=== PATIENT | male | born 1970 | race Caucasian/White ===

== ENCOUNTER 2023-07-24 08:54 | Day surgery (SDC) | payer OTHER ==
[2023-07-24] MEDS ORDERED: LIDOCAINE 1% (10MG/ML) FOR IV START INTRADERMA ONE (09:25)
[2023-07-24] MEDS ORDERED: LACTATED RINGERS 1,000 ML IV ONE (09:25)
[2023-07-24 09:26] VITALS: RESP 16; TEMP 97.2
[2023-07-24] MEDS ORDERED: LIDOCAINE 1% INJ 10MG/ML (20 ML MDV) ONE (09:40)
[2023-07-24] MEDS ORDERED: PROPOFOL 10 MG/ML 20 ML VIAL IV ONE (09:40)
[2023-07-24] MEDS ORDERED: GLYCOPYRROLATE 0.2 MG/ML 2 ML VIAL ONE (09:40)
--- NOTE | 2023-07-24 09:52 | P.GSHP ---
History of Present Illness H&P Date: 07/24/23 Chief Complaint: GERD, presurgical 53-year-old male here today for EGD. Patient is being evaluated for sleeve gastrectomy. No dysphagia. Past Medical History Past Medical History: Hypertension History of Any Multi-Drug Resistant Organisms: None Reported Past Surgical History: Tonsillectomy Past Anesthesia/Blood Transfusion Reactions: No Reported Reaction Smoking Status: Never smoker Medications and Allergies Home Medications Medication Instructions Recorded Confirmed Type Latanoprost Ophth [Xalatan 0.005%] 1 drops BOTH EYES HS 07/20/23 07/20/23 History Losartan Potassium 50 mg PO DAILY 07/20/23 07/20/23 History Allergies Allergy/AdvReac Type Severity Reaction Status Date / Time No Known Allergies Allergy Verified 07/24/23 09:18 Surgical - Exam Vital Signs Temp Pulse Resp BP Pulse Ox 97.2 F L 71 16 136/83 95 07/24/23 09:22 07/24/23 09:22 07/24/23 09:22 07/24/23 09:22 07/24/23 09:22 Physical exam: General: Well-developed, well-nourished HEENT: Normocephalic, sclerae nonicteric Abdomen: Nontender, nondistended Extremities: No edema Neuro: Alert and oriented Assessment and Plan (1) Morbid obesity with BMI of 40.0-44.9, adult Narrative/Plan: Will proceed with EGD at this time Current Visit: No Status: Acute Code(s): E66.01 - MORBID (SEVERE) OBESITY DUE TO EXCESS CALORIES; Z68.41 - BODY MASS INDEX [BMI] 40.0-44.9, ADULT SNOMED Code(s): 717422356
--- NOTE | 2023-07-24 10:00 | P.PCN ---
Date of Procedure: 07/24/23 Procedure(s) Performed: Preoperative Dx: GERD, presurgical Postoperative Dx: Erosive gastritis Procedure: EGD with Bx Anesthesia: Sedation Endoscopist: Dr. Post Specimens: Antrum Endoscopic Procedure: The patient was on the endoscopy table in the left decubitus position. The Olympus gastroscope was inserted into the oropharynx and passed under direct visualization to the region of the third portion of the duodenum. From that point the scope was slowly withdrawn inspecting all surfaces carefully. There were no neoplastic inflammatory or polypoid lesions throughout the duodenum. The pylorus was widely patent. The stomach was carefully inspected. There was gastritis present. There was some superficial erosions present with a small amount of blood in the lumen. A biopsy of the antrum took place to rule out H. pylori. Retroflexion revealed a normal hiatus. The esophagus was then carefully examined. There were no neoplastic inflammatory or polypoid lesions throughout the visualized esophagus. The patient was then taken to the recovery room in stable condition per anesthesia guidelines. Recommendations: Begin antiacid therapy. Await biopsy results. Follow bariatric center.
[2023-07-24 10:43] VITALS: BP 112/75; PULSE 77
== END 2023-07-24 10:44 | disposition home or self-care (01) ==
LOC: ORWHC2ENDO 08:54
PROVIDERS: ATTEND Surgery
DX: K29.50 Unspecified chronic gastritis without bleeding (principal); K21.9 Gastro-esophageal reflux disease without esophagitis; I10 Essential (primary) hypertension; Z98.890 Other specified postprocedural states; Z79.899 Other long term (current) drug therapy
CPT/HCPCS: 88305; 43239; J2001; J2704

== ENCOUNTER → 2023-08-14 | Outpatient (CLI) | payer OTHER ==
[2023-08-14 15:41] VITALS: BP 143/95; PULSE 86; RESP 16; TEMP 97.3; BMI 44.6
--- NOTE | 2023-08-14 15:55 | P.BASOAP ---
Subjective Progress Note Date: 08/14/23 Principal diagnosis: Morbid obesity 53-year-old male returns after recent EGD. Patient had erosive gastritis. He was started on his antiacid therapy. Doing well at this time. Remains interested in sleeve gastrectomy. Objective - Vital Signs Vital signs: Vital Signs Temp 97.3 F L 08/14/23 15:31 Pulse 86 08/14/23 15:31 Resp 16 08/14/23 15:31 BP 143/95 08/14/23 15:31 Pulse Ox FiO2 Intake & Output 08/13/23 08/14/23 08/14/23 18:59 06:59 18:59 Weight 149.232 kg - Exam Abdomen: Soft, nontender, nondistended Assessment/Plan (1) Morbid obesity with BMI of 40.0-44.9, adult Narrative/Plan: 53-year-old male with history of morbid obesity and associated comorbidities. Patient remains interested in sleeve gastrectomy. Surgical consent form reviewed in detail. All questions answered. The risks of bleeding, infection, stenosis, stricture, leak, abscess, fistula formation, peritonitis, poor weight loss, reflux, vomiting, conversion to an open procedure, aborting sleeve gastrectomy, NC, PE, DVT, and were discussed. The patient understands and wishes to proceed. Plan: Date: 08/14/23 Initial Weight: 147.644 kg Initial BMI: 44.1 Current Weight: 149.232 kg Current BMI: 44.6 Type of Surgery: Total Volume in Band: Previous Volume: Volume Removed: Volume Added: Band Size:
== END ==
LOC: BARWHC3 15:11
PROVIDERS: ATTEND Surgery
DX: E66.01 Morbid (severe) obesity due to excess calories (principal)
CPT/HCPCS: 99211

== ENCOUNTER → 2023-12-26 | Outpatient (CLI) | payer OTHER ==
[2023-12-26 14:39] VITALS: BP 137/90; PULSE 69; RESP 16; TEMP 97.8
--- NOTE | 2023-12-26 16:04 | P.SLEEP ---
History of Present Illness DATE: 12/26/2023 CONSULTATION/NEW PATIENT EVALUATION HISTORY OF PRESENT ILLNESS/SLEEP-WAKE EVALUATION: 53-year-old gentleman had b een evaluated in the sleep center for possible obstructive sleep apnea hypopnea syndrome. SLEEP SCHEDULE: Usually sleep schedule from 10 PM to 7:30 AM on weekdays and from 1011 PM to 78 AM on weekend. FALLING ASLEEP: No problems with falling asleep. DURING SLEEP: Patient snores and has episodes of stop breathing during the sleep. Patient wakes up from sleep 3 times with nocturia. No history of hypnogogical hallucinations, sleep paralysis, or cataplexy. DURING THE DAY/WAKE STATE: In the morning patient wake up tired. [place] sleepiness scale is increased to 10. Usually patient does not take naps. PAST MEDICAL HISTORY: Hypertension, sinuses problems PAST SURGICAL HISTORY: Tonsillectomy. MEDICATIONS: Losartan 100 mg once a day. SOCIAL HISTORY: Negative for smoking or using alcohol. FAMILY HISTORY: Cancer, diabetes, heart problems. REVIEW OF SYSTEMS: Snoring, multiple awakenings from sleep, sleepiness during the day. No fevers. No double vision. No recent chest pain. No shortness of breath. No abdominal pain. No bleeding episodes. No blood in urine. No seizure episodes. PHYSICAL EXAMINATION: GENERAL: A pleasant patient without any distress. VITAL SIGNS: Please see below, body mass index 41.2. HEENT: PERRLA, EOMI. Evaluation of oropharynx showed tongue protrudes midline, low position of soft palate Mallampati 3. NECK: Supple. No JVD. Thyroid is not palpable. 20-3/4 inches in circumference. LUNGS: Clear to percussion and to auscultation. Good air exchange. No wheezing or rhonchi. HEART: S1, S2 regular. No murmurs, gallops or rubs. ABDOMEN: Soft and nontender. Bowel sounds are present. No organomegaly appreciated. EXTREMITIES: No clubbing or cyanosis. VIDEO GAMES MECHANIC: Awake, alert, and oriented x3. Cranial nerves 2 to 7 intact. There is no fasciculation or atrophy noted. No focal deficits observed. ASSESSMENT: 1. Snoring, episodes of stop breathing during the sleep, low position of soft palate, extremely wide neck 20 and three-quarter inches in circumference, sleepiness [place] Sleepiness Scale increased to 10. Obstructive sleep apnea hypopnea syndrome. 2. Obesity, BMI 41.2. 3. Hypertension. 4. History of sinuses problems. 5 status post tonsillectomy. PLAN: 1. Polysomnography for evaluation of patient's breathing during sleep. 2. Following plan after reading sleep study. 3. Preferable position during sleep on the side. 4. No driving if patient feels any sleepiness. Patient is aware of civil and criminal liability for unsafe driving. 5. Sleep hygiene with regular sleep time for at least 7.5-8 hours. 6. Watching and losing weight. Thank you very much for referring this patient for consultation. Sincerely, Ash Mares MD, PhD, FAASM. Diplomat of [employer], Sleep Medicine Board by [employer] [facility] [place] Past Medical History Past Medical History: Hypertension Additional Past Medical History / Comment(s): SINUS HEADACHES History of Any Multi-Drug Resistant Organisms: None Reported Past Surgical History: Tonsillectomy Past Anesthesia/Blood Transfusion Reactions: No Reported Reaction Past Psychological History: No Psychological Hx Reported Smoking Status: Never smoker Past Alcohol Use History: Rare Past Drug Use History: Marijuana Additional Drug Use History / Comment(s): smokes daily Medications and Allergies Home Medications Medication Instructions Recorded Confirmed Type Latanoprost Ophth [Xalatan 0.005%] 1 drops BOTH EYES HS 07/20/23 08/15/23 History Losartan Potassium 50 mg PO DAILY 07/20/23 12/26/23 History Omeprazole [PriLOSEC] 40 mg PO AC-BRKFST #90 cap 07/24/23 12/26/23 Rx Allergies Allergy/AdvReac Type Severity Reaction Status Date / Time No Known Allergies Allergy Verified 07/24/23 09:18 Physical Exam Vitals: Vital Signs Temp Pulse Resp BP Pulse Ox 12/26/23 14:17 97.8 F 69 16 137/90 98 Intake and Output 12/26/23 12/26/23 12/26/23 06:59 14:59 22:59 Other: Weight 133.016 kg Sleep Note - Sleep Data ESS Total: 10 - Sleep Note Sleep Note: Temperature: 97.8 F Pulse Rate: 69 Respiratory Rate: 16 Blood Pressure: 137/90 SpO2: 98 Height: 5 ft 10.7 in Weight: 133.016 kg BMI: Neck Circumference:
== END | disposition home or self-care (01) ==
LOC: 3 N SLEEP 14:00
PROVIDERS: ATTEND Internal Medicine
DX: G47.33 Obstructive sleep apnea (adult) (pediatric) (principal); E66.9 Obesity, unspecified; I10 Essential (primary) hypertension; J32.9 Chronic sinusitis, unspecified; R06.83 Snoring; Z98.890 Other specified postprocedural states
CPT/HCPCS: 99211

== ENCOUNTER 2023-12-30 17:15 | Inpatient (IN) | payer OTHER ==
[2023-12-30] MEDS: MORPHINE SULFATE 4 MG/ML SYRINGE IVP STA ×2 (17:43→20:27)
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
[2023-12-30 17:52] LABS: Basophils # (A) 0.1 k/uL (0-0.2); Basophils % (A) 0 %; Eosinophils # (A) 0.1 k/uL (0-0.7); Eosinophils % (A) 1 %; HCT 47.9 % (39.0-53.0); HGB 15.8 gm/dL (13.0-17.5); Lymphocytes # (A) 1.5 k/uL (1.0-4.8); Lymphocytes % (A) 10 %; MCH 29.8 pg (25.0-35.0); MCHC 32.9 g/dL (31.0-37.0); MCV 90.6 fL (80.0-100.0); Mean Platelet Volume 8.6; Monocytes # (A) 0.5 k/uL (0-1.0); Monocytes % (A) 3 %; Neutrophils # (A) 12.6 k/uL (1.3-7.7); Neutrophils % (A) 85 %; Platelet Count 221 k/uL (150-450); RBC 5.29 m/uL (4.30-5.90); RDW 13.7 % (11.5-15.5); WBC 14.8 k/uL (3.8-10.6)
[2023-12-30 18:00] LABS: Partial Thromboplastin Time 25.1 sec (22.0-30.0); Prothrombin Time 10.7 sec (10.0-12.5)
[2023-12-30 18:06] LABS: ALT 137 U/L (4-49); AST 127 U/L (17-59); African American GFR (CKD) >90 (>60 ml/min/1.73 sqM); Albumin 4.4 g/dL (3.5-5.0); Alkaline Phosphatase 59 U/L (38-126); Anion Gap 7 mmol/L; Blood Urea Nitrogen 14 mg/dL (9-20); Calcium 9.3 mg/dL (8.4-10.2); Carbon Dioxide 25 mmol/L (22-30); Chloride 109 mmol/L (98-107); Glucose 92 mg/dL (74-99); Non-African American GFR(CKD) >90 (>60 ml/min/1.73 sqM); Potassium 4.3 mmol/L (3.5-5.1); Sodium 141 mmol/L (137-145); Total Bilirubin 0.7 mg/dL (0.2-1.3); Total Protein 7.1 g/dL (6.3-8.2)
[2023-12-30] MEDS: SODIUM CHLORIDE 0.9% 1,000 ML IV STA ×2 (18:10→21:02)
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
[2023-12-30 18:29] LABS: Alcohol 158 mg/dL
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
[2023-12-30] MEDS ORDERED: NALOXONE 0.4 MG/ML 1 ML VIAL IV PRN (19:58)
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
[2023-12-30] MEDS: LIDOCAINE 4% PATCH TOPICAL ONE (20:42)
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
[2023-12-30 21:31] LABS: Appearance,Urine Clear (Clear); Bilirubin,Urine Negative (Negative); Blood,Urine Trace (Negative); Color,Urine Colorless; Glucose,Urine (UA) Negative (Negative); Ketones,Urine Trace (Negative); Leukocyte Esterase,Urine Negative (Negative); Nitrite,Urine Negative (Negative); Protein,Urine Negative (Negative); RBC,Urine <1 /hpf (0-5); Specific Gravity,Urine 1.023 (1.001-1.035); Urobilinogen,Urine <2.0 mg/dL (<2.0); WBC,Urine 1 /hpf (0-5)
[2023-12-30 21:38] LABS: Amphetamine Screen,Urine Not Detected (NotDetected); Barbiturate Screen,Urine Not Detected (NotDetected); Benzodiazepines Screen,Urine Not Detected (NotDetected); Cocaine Screen,Urine Not Detected (NotDetected); Methadone Screen, Urine Not Detected (NotDetected); Opiate Screen,Urine Detected (NotDetected); Oxycodone Screen, Urine Not Detected (NotDetected); Phencyclidine Screen,Urine Not Detected (NotDetected); Tricyclic Antidepressant,Urine Not Detected (NotDetected); Urn Cannabinoid Scrn Detected (NotDetected)
[2023-12-30] MEDS: CYCLOBENZAPRINE 10 MG TAB PO PRN (23:19)
[2023-12-30] MEDS: ACETAMINOPHEN TAB 325 MG TAB PO PRN (23:19)
[2023-12-31] MEDS: MORPHINE SULFATE 4 MG/ML SYRINGE IVP PRN (00:14)
--- NOTE | 2023-12-31 08:03 | XR ---
EXAMINATION TYPE: XR chest 1V portable DATE OF EXAM: 12/31/2023 COMPARISON: 12/30/2023 INDICATION: Chest trauma TECHNIQUE: Single frontal view of the chest is obtained. FINDINGS: The heart size is normal. The pulmonary vasculature is normal. A mild atelectasis review at the right base. IMPRESSION: 1. Mild plate atelectasis right lung base
[2023-12-31] MEDS: LOSARTAN 50 MG TAB PO SCH (08:07)
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
[2023-12-31] MEDS: FAMOTIDINE 20 MG TAB PO SCH (11:01)
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
[2023-12-31] MEDS: HEPARIN SODIUM,PORCINE 5,000 UNIT/ML 1 ML VIAL SQ SCH (20:14)
[2023-12-31] MEDS: LATANOPROST 0.005% OPHTH DROPS 2.5 ML BTL RIGHT EYE SCH (22:44)
[2024-01-01] MEDS ORDERED: HYDROmorphone 0.5 MG/0.5 ML SYRINGE IVP PRN ×2 (07:59→19:23)
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
[2024-01-01 08:44] VITALS: BMI 39.3
[2024-01-01 11:05] LABS: Basophils % (A) 0 %; Eosinophils % (A) 0 %; HCT 45.3 % (39.0-53.0); HGB 15.5 gm/dL (13.0-17.5); Lymphocytes % (A) 9 %; MCH 30.7 pg (25.0-35.0); MCHC 34.2 g/dL (31.0-37.0); MCV 89.7 fL (80.0-100.0); Mean Platelet Volume 8.9; Monocytes # (A) 0.7 k/uL (0-1.0); Monocytes % (A) 6 %; Neutrophils # (A) 9.2 k/uL (1.3-7.7); Neutrophils % (A) 83 %; Platelet Count 187 k/uL (150-450); RBC 5.05 m/uL (4.30-5.90); RDW 13.9 % (11.5-15.5); WBC 11.1 k/uL (3.8-10.6)
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
[2024-01-01] MEDS: SODIUM CHLORIDE 0.9% 1,000 ML IV SCH ×2 (11:16→23:15)
[2024-01-01 11:26] LABS: ALT 83 U/L (4-49); AST 70 U/L (17-59); African American GFR (CKD) >90 (>60 ml/min/1.73 sqM); Albumin 3.8 g/dL (3.5-5.0); Albumin/Globulin Ratio 1.5; Alkaline Phosphatase 65 U/L (38-126); Anion Gap 9 mmol/L; Blood Urea Nitrogen 11 mg/dL (9-20); Calcium 8.9 mg/dL (8.4-10.2); Carbon Dioxide 22 mmol/L (22-30); Chloride 105 mmol/L (98-107); Globulin 2.5 g/dL; Glucose 100 mg/dL (74-99); Non-African American GFR(CKD) >90 (>60 ml/min/1.73 sqM); Potassium 4.2 mmol/L (3.5-5.1); Sodium 136 mmol/L (137-145); Total Bilirubin 2.5 mg/dL (0.2-1.3); Total Protein 6.3 g/dL (6.3-8.2)
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
[2024-01-01] MEDS: LACTATED RINGERS 1,000 ML IV ONE ×4 (14:07→19:07)
[2024-01-01] MEDS: SODIUM CHLORIDE 0.9% 1,000 ML IV ONE (14:07)
[2024-01-01 14:15] LABS: Glucose,Whole Blood 98 mg/dL (70-110)
[2024-01-01] MEDS: ONDANSETRON 4 MG/2 ML VIAL ONE (14:21)
[2024-01-01] MEDS: fentaNYL (PF) 50 MCG/ML 2 ML AMP IVP ONE ×2 (15:48→20:17)
[2024-01-01] MEDS ORDERED: SUCCINYLCHOLINE CHLORIDE 200 MG/10 ML VIAL IV ONE (16:17)
[2024-01-01] MEDS ORDERED: MIDAZOLAM 2 MG/2 ML VIAL ONE (16:17)
[2024-01-01] MEDS ORDERED: fentaNYL (PF) 50 MCG/ML 2 ML AMP ONE (16:17)
[2024-01-01] MEDS ORDERED: ROCURONIUM 10 MG/ML (5 ML VIAL) IV ONE (16:17)
[2024-01-01] MEDS ORDERED: KETAMINE HCL IN 0.9 % NACL 50 MG/5 ML SYRINGE ONE (16:17)
[2024-01-01] MEDS ORDERED: NEOSTIGMINE 1 MG/ML 10 ML VIAL ONE (16:17)
[2024-01-01] MEDS ORDERED: GLYCOPYRROLATE 0.2 MG/ML 2 ML VIAL ONE (16:17)
[2024-01-01] MEDS ORDERED: PHENYLEPHRINE-0.9% NACL SYG 1,000 MCG/10 ML SYRINGE ONE (16:17)
[2024-01-01] MEDS ORDERED: PROPOFOL 10 MG/ML 20 ML VIAL IV ONE (16:17)
[2024-01-01] MEDS: ceFAZolin 3 GM in SODIUM CHLORIDE 0.9% 100 ML IVPB PRN (16:22)
[2024-01-01] MEDS: BUPIVACAINE (PF) 0.5% 30 ML VIAL SQ ONE (16:57)
[2024-01-01] MEDS: LIDOCAINE 2%-EPI 1:100,000 20 ML VIAL SQ ONE (16:57)
[2024-01-01] MEDS: THROMBIN (BOVINE) 5,000 UNIT VIAL MISCELLANE ONE (16:58)
[2024-01-01] MEDS: ceFAZolin 1,000 MG in SODIUM CHLORIDE 0.9% 1,000 ML IRRIGATION ONE (17:07)
[2024-01-01] MEDS ORDERED: bisacodyL 10 MG SUPP RECTAL PRN (19:23)
[2024-01-01] MEDS ORDERED: ONDANSETRON 4 MG/2 ML VIAL IVP PRN (19:23)
[2024-01-01] MEDS ORDERED: MAGNESIUM HYDROXIDE 2,400 MG/30 ML CUP PO PRN (19:23)
[2024-01-01] MEDS ORDERED: BENZOCAINE/MENTHOL LOZENG 1 EACH LOZENGE MUCOUS MEM PRN (19:23)
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
[2024-01-01] MEDS: HYDROmorphone 0.5 MG/0.5 ML SYRINGE IVP ONE ×2 (19:44)
[2024-01-01] MEDS: HYDROmorphone 1 MG/ML 1 ML SYRINGE IVP PRN (22:13)
[2024-01-01] MEDS: ceFAZolin 3 GM in SODIUM CHLORIDE 0.9% 100 ML IVPB SCH (23:15)
[2024-01-02] MEDS: HYDROcodone/APAP 5-325MG 1 EACH TAB PO PRN (00:14)
--- NOTE | 2024-01-02 06:59 | FL ---
EXAMINATION TYPE: FL guidance operating room, XR lumbar spine 1V DATE OF EXAM: 01/01/2024 CLINICAL HISTORY: Low back pain. TECHNIQUE: Fluoroscopy. Lumbar spine one view. COMPARISON: CT lumbar spine 2 days earlier. FINDINGS: Fluoroscopic guidance was provided during minimally invasive lumbar fusion procedure perfo rmed by Dr. Nettles. A total of 65 seconds of fluoroscopic time was utilized during the procedure and two spot images was acquired. Intraoperative images show a long segment fusion hardware from T11 thro ugh L3 levels bilaterally. IMPRESSION: As Above. TOTAL DAP = 8564.16 cGy x cm2.
[2024-01-02] MEDS: SENNOSIDES-DOCUSATE SODIUM 1 EACH TAB PO SCH (07:59)
[2024-01-02 09:43] LABS: Basophils # (A) 0.03 X 10*3/uL (0.00-0.10); Basophils % (A) 0.3 %; Eosinophils # (A) 0.02 X 10*3/uL (0.04-0.35); Eosinophils % (A) 0.2 %; HCT 41.7 % (39.6-50.0); HGB 13.8 g/dL (13.0-17.0); Lymphocytes # (A) 0.93 X 10*3/uL (0.90-5.00); Lymphocytes % (A) 8.3 %; MCH 30.3 pg (27.0-32.0); MCHC 33.1 g/dL (32.0-37.0); MCV 91.4 FL (80.0-97.0); Mean Platelet Volume 12.2 FL (9.5-12.2); Monocytes # (A) 0.67 X 10*3/uL (0.20-1.00); NRBC Per 100 WBC 0.03 X 10*3/uL (0.00-0.01); Neutrophils # (A) 9.51 X 10*3/uL (1.80-7.70); Neutrophils % (A) 84.8 %; Platelet Count 140 X 10*3/uL (140-440); RBC 4.56 X 10*6/uL (4.40-5.60); RBC Morphology Normal (Normal); RDW 13.7 % (11.5-14.5); WBC 11.21 X 10*3/uL (4.50-10.00)
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
[2024-01-02 11:51] LABS: BUN/Creat Ratio 11.11 Ratio (12.00-20.00); Calcium 8.7 mg/dL (8.7-10.3); Chloride 100 mmol/L (96-109); Glucose 109 mg/dL (70-110); Potassium 4.4 mmol/L (3.5-5.5); Sodium 137 mmol/L (135-145)
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
[2024-01-03] MEDS ORDERED: HYDROcodone/APAP 7.5-325MG 1 EACH TAB PO PRN (09:26)
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
[2024-01-03] MEDS: HYDROcodone/APAP 7.5-325MG 1 EACH TAB PO PRN (16:38)
[2024-01-03] MEDS: SENNOSIDES-DOCUSATE SODIUM 1 EACH TAB PO PRN (18:07)
[2024-01-04 08:28] VITALS: BP 136/95; PULSE 112; RESP 18; TEMP 97.7
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
[2024-01-04 12:14] LABS: Basophils # (A) 0.05 X 10*3/uL (0.00-0.10); Basophils % (A) 0.3 %; Eosinophils # (A) 0.02 X 10*3/uL (0.04-0.35); Eosinophils % (A) 0.1 %; HCT 43.3 % (39.6-50.0); HGB 14.7 g/dL (13.0-17.0); Lymphocytes # (A) 0.82 X 10*3/uL (0.90-5.00); Lymphocytes % (A) 5.6 %; MCH 29.5 pg (27.0-32.0); MCHC 33.9 g/dL (32.0-37.0); MCV 86.9 FL (80.0-97.0); Mean Platelet Volume 11.2 FL (9.5-12.2); Monocytes # (A) 0.99 X 10*3/uL (0.20-1.00); Monocytes % (A) 6.8 %; NRBC Per 100 WBC 0 X 10*3/uL (0.00-0.01); Neutrophils # (A) 12.54 X 10*3/uL (1.80-7.70); Neutrophils % (A) 86.2 %; Platelet Count 287 X 10*3/uL (140-440); RBC 4.98 X 10*6/uL (4.40-5.60); RDW 13.8 % (11.5-14.5); WBC 14.56 X 10*3/uL (4.50-10.00)
[2024-01-04 12:26] LABS: BUN/Creat Ratio 23.88 Ratio (12.00-20.00); Blood Urea Nitrogen 19.1 mg/dL (9.0-27.0); Calcium 9.3 mg/dL (8.7-10.3); Carbon Dioxide 21.7 mmol/L (21.6-31.8); Chloride 97 mmol/L (96-109); Glucose 142 mg/dL (70-110); Potassium 4.2 mmol/L (3.5-5.5); Sodium 135 mmol/L (135-145)
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
== END 2024-01-04 15:23 | disposition home or self-care (01) | DRG 460 ==
LOC: EC 17:15 → MERGE 19:59 → 4SSUR 19:59
PROVIDERS: ADMIT Surgery Plastic and Reconstructive Surgery; ATTEND Surgery Plastic and Reconstructive Surgery
PROC: 0SG1071 Fusion of 2 or more Lumbar Vertebral Joints with Autologous Tissue Substitute, Posterior Approach, Posterior Column, Open Approach (ICD-10-PCS; 2024-01-01)
PROC: 0RG6071 Fusion of Thoracic Vertebral Joint with Autologous Tissue Substitute, Posterior Approach, Posterior Column, Open Approach (ICD-10-PCS; 2024-01-01)
PROC: 8E0WXBG Computer Assisted Procedure of Trunk Region, With Computerized Tomography (ICD-10-PCS; 2024-01-01)
PROC: 0RGA071 Fusion of Thoracolumbar Vertebral Joint with Autologous Tissue Substitute, Posterior Approach, Posterior Column, Open Approach (ICD-10-PCS; principal; 2024-01-01 15:00)
DX: S32.018A Other fracture of first lumbar vertebra, initial encounter for closed fracture (principal); S22.43XA Multiple fractures of ribs, bilateral, initial encounter for closed fracture; S32.012A Unstable burst fracture of first lumbar vertebra, initial encounter for closed fracture; S05.11XA Contusion of eyeball and orbital tissues, right eye, initial encounter; S50.812A Abrasion of left forearm, initial encounter; Y90.6 Blood alcohol level of 120-199 mg/100 ml; E66.9 Obesity, unspecified; F10.229 Alcohol dependence with intoxication, unspecified; I10 Essential (primary) hypertension; Y92.410 Unspecified street and highway as the place of occurrence of the external cause; Z74.01 Bed confinement status; V43.92XA Unspecified car occupant injured in collision with other type car in traffic accident, initial encounter; Z68.39 Body mass index [BMI] 39.0-39.9, adult
CPT/HCPCS: 36415; 70450; 70486; 71045; 71260; 72020; 72125; 72129; 72131; 72132; 72170; 74177; 80048; 80053; 80306; 80320; 81001; 84484; 85025; 85610; 85730; 86850; 86900; 86901; 93005; 94760; 96361; 96372; 96374; 96376; 99291